=== PATIENT | male | born 1940 | race Caucasian/White ===

== ENCOUNTER 2017-04-05 12:14 | Outpatient (CLI) | payer MEDICARE, OTHER | END 2017-04-05 12:15 | disposition short-term general hospital (02) | LOC: EMS 12:14 | PROVIDERS: ATTEND Surgery | DX: R11.2 Nausea with vomiting, unspecified (principal) | CPT/HCPCS: A0425; A0427 ==

== ENCOUNTER 2017-05-17 08:36 | Day surgery (SDC) | payer MEDICARE, OTHER ==
[~2017-05-17 08:36] MED LIST: BRIMONIDINE 0.2% OPHTH DROPS 5 ML ONE; CYCLOPENTOLATE 1% OPHTH DROPS 2 ML ONE; KETOROLAC 0.45% OPHTH DROPS ONE; PHENYLEPHRINE 2.5% OPHTH 2 ML DROPS ONE; PROPARACAINE 0.5% OPHTH DROPS 15 ML ONE; TIMOLOL 0.5% OPHTH DROPS ONE
[2017-05-17] MEDS ORDERED: LACTATED RINGERS 500 ML IV ONE (08:50)
[2017-05-17] MEDS ORDERED: LACTATED RINGERS 1,000 ML IV ONE ×2 (09:38→09:55)
[2017-05-17] MEDS ORDERED: ACETYLCHOLINE 20 MG/2 ML KIT IO ONE ×3 (09:41→10:36)
[2017-05-17] MEDS ORDERED: BRIMONIDINE 0.2% OPHTH DROPS 5 ML OPTH ONE ×2 (09:47→11:13)
[2017-05-17] MEDS ORDERED: CHONDR SULF/HYALURONATE SYRINGE IO ONE (09:48)
[2017-05-17] MEDS ORDERED: EPINEPHrine 1 MG/ML AMP IVP ONE (09:48)
[2017-05-17] MEDS ORDERED: TIMOLOL 0.5% OPHTH DROPS OPTH ONE ×2 (09:51→11:13)
[2017-05-17] MEDS ORDERED: BSS/LIDOCAINE/EPINEPHRINE 1 ML SYRINGE IO ONE ×2 (09:52→11:11)
[2017-05-17] MEDS ORDERED: TRIAMCIN/MOXIFLOX/VANCO 1 ML VIAL IO ONE ×2 (09:52→11:11)
[2017-05-17] MEDS ORDERED: PROPARACAINE 0.5% OPHTH DROPS 15 ML LEFTEYE ONE (09:52)
[2017-05-17] MEDS ORDERED: PROPOFOL 200 MG/20 ML VIAL IVP ONE (10:00)
[2017-05-17] MEDS ORDERED: LIDOCAINE-MPF 2% 5 ML VIAL IM ONE (10:00)
[2017-05-17] MEDS ORDERED: fentaNYL 250 MCG/5 ML VIAL IVP ONE (10:00)
[2017-05-17] MEDS ORDERED: MIDAZOLAM 2 MG/2 ML VIAL IVP ONE (10:00)
[2017-05-17] MEDS ORDERED: ePHEDrine 50 MG/ML VIAL IVP ONE (10:00)
[2017-05-17] MEDS ORDERED: ONDANSETRON 4 MG/2 ML VIAL IVP ONE (10:00)
[2017-05-17] MEDS ORDERED: TRIAMCINOLONE PF 40 MG/ML VIAL IO ONE (10:59)
[2017-05-17] MEDS ORDERED: TRIAMCINOLONE PF 40 MG/ML VIAL ONE (11:04)
--- NOTE | 2017-05-17 11:52 | OPERATIVE REPORT ---
DATE OF SERVICE: 05/17/2017 Physician: Rick Diego MD DATE OF SURGERY: 05/17/2017 PREOPERATIVE DIAGNOSIS: Subluxed intraocular lens left eye after intraocular surgery with cataract extraction and intraocular lens placement done at another facility in [place] about 6 months ago. The patient immediately started noticing double vision. A couple of procedures were performed but did not improve the outcome. On examination, he had a dislocated intraocular lens malpositioned superiorly, so the plan was to reposition the intraocular lens and sutured it to the iris. POSTOPERATIVE DIAGNOSIS: Subluxed intraocular lens left eye after intraocular surgery with cataract extraction and intraocular lens placement done at another facility in [place] about 6 months ago. The patient immediately started noticing double vision. A couple of procedures were performed but did not improve the outcome. On examination, he had a dislocated intraocular lens malpositioned superiorly, so the plan was to reposition the intraocular lens and sutured it to the iris. NAME OF PROCEDURE: Intraocular lens repositioning with pupillary capture and suturing to the iris with Prolene sutures. SURGEON: Rick Diego MD ANESTHESIA: Monitored anesthesia care. COMPLICATIONS: None. OPERATIVE INDICATIONS: This is a 76-year-old man with double vision and poor vision in the left eye due to a subluxed IOL. He was consented at length concerning the risks and benefits of IOL repositioning and/or exchange with an anterior chamber lens, and he wished to proceed with surgery. OPERATIVE PROCEDURE: The patient was taken into OR #3 and placed under monitored anesthesia care. However, very early on in the procedure he was moving a lot and so we converted to general anesthesia. Prior to general anesthesia, a surgical timeout was conducted confirming the correct patient, correct procedure, and correct surgical site. He was prepped and draped in the usual sterile fashion. The eye was entered initially inferiorly through which a Shugarcaine and Viscoat were injected into an anterior chamber. Then, the original phaco wound was opened. The lens was levitated with a Kuglen hook and the optic brought into the anterior chamber. Once accomplished, some side ports were created through which a CIF-4 needle was passed through the limbus, through the iris, underneath the corresponding haptic , out through the iris again, and out through the limbus again. These two suture tails were then captured with a Sinskey hook and brought through one of the wounds and a knot tied in a 2 -1-1 fashion. This was done on both haptics. The one haptic is temporal underneath the phaco wound and the other one is nasal, but more inferonasal. While the sutures were still loose, attempts to position the lens centrally proved troublesome, and even before the IOL had any sutures. It seemed that this lens wanted to drift superiorly and multiple attempts to center the lens during and after iris suturing proved somewhat futile. This lens just seemed to go superiorly but it appeared that with a small pupil that he would still have a complete optic coverage. Some light anterior vitrectomy was conducted to get rid of any vitreous coming up to the wounds. The main phaco wound was sutured with a 10-0 nylon. 0.7 mL of a mixture of triamcinolone, moxifloxacin, vancomycin was injected subconjunctivally in the superior quadrant for infection and inflammation prophylaxis. The eye was inflated to physiologic pressure and the surgery ended. The patient was extubated and taken to the postoperative area for post- op instructions. TD: 05/17/2017 11:51 YAQUELIN
[2017-05-17 12:16] VITALS: BP 136/70
== END 2017-05-17 08:37 | disposition home or self-care (01) ==
LOC: SDS 08:36
PROVIDERS: ATTEND Ophthalmology
PROC: 08SK3ZZ Reposition Left Lens, Percutaneous Approach (ICD-10-PCS; principal; 2017-05-17 10:00)
DX: T85.22XA Displacement of intraocular lens, initial encounter (principal); Z86.73 Personal history of transient ischemic attack (TIA), and cerebral infarction without residual deficits; I25.10 Atherosclerotic heart disease of native coronary artery without angina pectoris
CPT/HCPCS: 66682; A9270; J3010; J3300; J7120

== ENCOUNTER 2017-05-24 08:47 | Day surgery (SDC) | payer MEDICARE, OTHER ==
[2017-05-24] MEDS ORDERED: LACTATED RINGERS 500 ML IV ONE (09:26)
[2017-05-24] MEDS ORDERED: CARBACHOL 0.01% 1.5 ML VIAL IO ONE (09:53)
[2017-05-24] MEDS ORDERED: TRIAMCINOLONE PF 40 MG/ML VIAL ONE (09:54)
[2017-05-24] MEDS ORDERED: fentaNYL 100 MCG/2 ML VIAL IVP ONE (10:20)
[2017-05-24] MEDS ORDERED: MIDAZOLAM 2 MG/2 ML VIAL IVP ONE (10:20)
[2017-05-24] MEDS ORDERED: ONDANSETRON 4 MG/2 ML VIAL IVP ONE (10:20)
[2017-05-24] MEDS ORDERED: PROPOFOL 1000 MG/100 ML IV ONE (10:20)
[2017-05-24] MEDS ORDERED: ePHEDrine 50 MG/ML AMP IVP ONE ×2 (10:20→12:05)
[2017-05-24] MEDS ORDERED: LIDOCAINE-MPF 2% 5 ML VIAL IM ONE (10:20)
[2017-05-24] MEDS ORDERED: PROPARACAINE 0.5% OPHTH DROPS 15 ML LEFTEYE ONE ×2 (10:40→10:41)
[2017-05-24] MEDS ORDERED: BRIMONIDINE 0.2% OPHTH DROPS 5 ML OPTH ONE (10:40)
[2017-05-24] MEDS ORDERED: TIMOLOL 0.5% OPHTH DROPS OPTH ONE ×2 (10:41→11:42)
[2017-05-24] MEDS ORDERED: CHONDR SULF/HYALURONATE SYRINGE IO ONE ×2 (10:41)
[2017-05-24] MEDS ORDERED: TRIAMCIN/MOXIFLOX/VANCO 1 ML VIAL IO ONE ×2 (10:41→11:41)
[2017-05-24] MEDS ORDERED: LIDOCAINE-MPF 1% 2 ML AMP SUBQ ONE ×2 (10:42→11:41)
[2017-05-24] MEDS ORDERED: TRIAMCINOLONE PF 40 MG/ML VIAL IO ONE ×3 (10:43→11:02)
[2017-05-24] MEDS ORDERED: NEOMYCIN/BACITRA/POLYMYX/HC OINT 15 GM TUBE TOP ONE (11:46)
[2017-05-24] MEDS ORDERED: TIMOLOL 0.5% OPHTH DROPS ONE (12:48)
[2017-05-24] MEDS ORDERED: BRIMONIDINE 0.2% OPHTH DROPS 5 ML ONE (12:48)
[2017-05-24 14:16] VITALS: BP 145/84
--- NOTE | 2017-05-24 18:35 | OPERATIVE REPORT ---
DATE OF SERVICE: 05/24/2017 Physician: Rick Diego MD PREOPERATIVE DIAGNOSIS: Malpositioned intraocular lens, causing significant diplopia. He had an IOL repositioning and iris suturing done last week, but it failed to center the lens and his symptoms were no better. The original IOL surgery was done in [place] about 6- 8 months ago. POSTOPERATIVE DIAGNOSIS: Same. PROCEDURE PERFORMED: Extraction of the sutured posterior chamber IOL and exchange with an anterior fixated IOL. SURGEON: Rick Diego MD ANESTHESIA: General anesthesia. COMPLICATIONS: None. OPERATIVE INDICATIONS: This is a 76-year-old man as described above with a malpositioned intraocular lens posterior to the iris. He was consented at length concerning risks and benefits of IOL exchange and he desired to proceed with surgery. SURGICAL PROCEDURE: The patient was taken into OR #3, and placed under general anesthesia. A surgical timeout was conducted confirming correct patient, correct procedure, and correct surgical site. He was prepped and draped in the usual sterile fashion. A suture across the phaco was removed and Viscoat was injected into the anterior chamber to inflate it and protect the corneal endothelium. Several attempts with microscissors were made to cut the sutures where the haptics were sutured to the iris, but this proved futile so I ended up dialing the 3-piece IOL into the anterior chamber while sliding the haptics out of those two iris sutures. The IOL was then cut in half and removed through the temporal wound. Some moderate anterior vitrectomy was performed as the pupil seemed to be peaking temporally. Once that was accomplished, more viscoelastic was placed into the anterior chamber. The horizontal limbal [id number] was measured to be 11.5mm using calipers. The phaco wound was enlarged to 6mm and a Sheetz glide was slid into the anterior chamber and engaged the nasal angle. An MTA3UO 20.0 diopter anterior chamber IOL with a 12.5 mm total diameter was then slid over the Sheetz glide and engaged with the nasal angle. The Sheetz glide was then removed and the temporal haptics were pushed underneath the wound into the temporal angle. Triesence was injected into the anterior chamber , looking for any vitreous. There was some anterior chamber vitreous that was cut both with wet and dry vitrectomy. The vitrector setting was then changed to I-A-Cut to remove the anterior viscoelastic. A little bit of positioning of the AC/IOL was done to releive iris tuck. The large temporal wound was leaking so three 10-0 nylon sutures were placed across the wound. After primary would suturing the eye did inflate but would not hold pressure. The paracentesis wound inferiorly was found to also be leaking so a 10-0 suture was also placed it and then the eye was watertight. About 0.8 mL of a mixture of triamcinolone, moxifloxacin, vancomycin was injected under the superior conjunctiva for infection and inflammation prophylaxis. The eye was once again verified to be watertight. The knots were rotated under the wounds. The patient was extubated and taken from the operating room in good condition. TD: 05/24/2017 18:34 YAQUELIN
== END 2017-05-24 08:48 | disposition home or self-care (01) ==
LOC: SDS 08:47
PROVIDERS: ATTEND Ophthalmology
PROC: 08RK3JZ Replacement of Left Lens with Synthetic Substitute, Percutaneous Approach (ICD-10-PCS; 2017-05-24)
PROC: 08PK3JZ Removal of Synthetic Substitute from Left Lens, Percutaneous Approach (ICD-10-PCS; principal; 2017-05-24 10:00)
DX: T85.22XA Displacement of intraocular lens, initial encounter (principal); H53.2 Diplopia; I10 Essential (primary) hypertension; I25.10 Atherosclerotic heart disease of native coronary artery without angina pectoris; I25.2 Old myocardial infarction; Z86.73 Personal history of transient ischemic attack (TIA), and cerebral infarction without residual deficits; Z87.891 Personal history of nicotine dependence
CPT/HCPCS: 66986; A9270; J3300